=== PATIENT | female | born 1975 | race Hispanic/Latino ===

== ENCOUNTER 2020-07-27 10:10 | Inpatient (IN) | payer OTHER ==
[2020-07-22 09:45] LABS: BASOPHILS % 0.4 % (0.0-1.0); EOSINOPHILS % 0.5 % (0.0-6.0); HEMATOCRIT 42.2 % (34.2-44.1); HEMOGLOBIN 14.3 g/dL (12.0-16.0); LYMPHOCYTES # (AUTO) 2.3 (1.0-3.2); LYMPHOCYTES % 28.1 % (18.0-39.1); MEAN CORPUSCULAR HEMOGLOBIN 31.2 pg (28-32); MEAN CORPUSCULAR HGB CONC 33.9 g/dL (31-35); MEAN CORPUSCULAR VOLUME 91.9 fL (81-99); MONOCYTES # (AUTO) 0.5 (0.2-0.8); MONOCYTES % 6.3 % (4.4-11.3); NEUTROPHILS # (AUTO) 5.3 (2.1-6.9); NEUTROPHILS % 64.3 % (38.7-80.0); PLATELET COUNT 426 x10e3/uL (140-360); RED BLOOD COUNT 4.59 x10e6/uL (3.6-5.1); RED CELL DISTRIBUTION WIDTH 14.3 % (11.7-14.4)
[2020-07-22 10:14] LABS: ALANINE AMINOTRANSFERASE 20 IU/L (0-55); ALBUMIN 3.2 g/dL (3.5-5.0); ALBUMIN/GLOBULIN RATIO 0.8 (0.8-2.0); ALKALINE PHOSPHATASE 56 IU/L (40-150); BLOOD UREA NITROGEN 15 mg/dL (7-26); BUN/CREATININE RATIO 22 (6-25); CALCIUM 8.3 mg/dL (8.4-10.2); CARBON DIOXIDE 27 mmol/L (22-29); CHLORIDE 102 mmol/L (98-107); CREATININE, SERUM 0.69 mg/dL (0.57-1.11); EST GLOMERULAR FILTRATION RATE > 60 ML/MIN (60-); GLUCOSE 76 mg/dL (74-118); SODIUM 139 mmol/L (136-145)
[~2020-07-27 10:10] MED LIST: ATENOLOL50 MG PO; GABAPENTIN400 MG PO; HYDROXYZINE HCL25 MG PO; LOSARTAN POTAS100 MG PO; NP THYROID30 MG PO; PERCOCET 10-321 EACH PO
[2020-07-27] MEDS ORDERED: CEFAZOLIN SOD 1 GM/NS 50ML 100 ML IV ONE (10:57)
[2020-07-27] MEDS ORDERED: IOPAMIDOL 300MG/ML 50ML INFUS..BTL IV ONE (11:55)
[2020-07-27] MEDS ORDERED: B&O 60MG R/S 60 MG SUPP PR ONE (11:55)
[2020-07-27] MEDS ORDERED: BUPIVACAINE 0.25%/EPI 30ML SDV INJ ONE (11:55)
[2020-07-27] MEDS ORDERED: DEXAMETHASONE SOD PHOS INJ 4 MG/ML VIAL ONE (13:16)
[2020-07-27] MEDS ORDERED: SEVOFLURANE INHAL SOLN 250 ML PEN BTL ONE (13:16)
[2020-07-27] MEDS ORDERED: ONDANSETRON HCL INJ 2MG/ML 2ML 2 MG/ML VIAL ONE (13:16)
[2020-07-27] MEDS ORDERED: METOCLOPRAMIDE HCL 10 MG/2ML VIAL ONE (13:16)
[2020-07-27] MEDS ORDERED: PROPOFOL IV EMULSION 10 MG/ML 20 ML VIAL ONE (13:16)
[2020-07-27] MEDS ORDERED: SUCCINYLCHOLINE CHLORIDE 20 MG/ML 10ML VIAL ONE (13:16)
[2020-07-27] MEDS ORDERED: NEOSTIGMINE 1 MG/ML 10ML VIAL ONE (13:16)
[2020-07-27] MEDS ORDERED: LIDOCAINE HCL 2% LOCAL INJ 5 ML SDV VIAL INJ ONE (13:16)
[2020-07-27] MEDS ORDERED: GLYCOPYRROLATE INJ 0.2 MG/ML VIAL ONE (13:16)
[2020-07-27] MEDS ORDERED: ROCURONIUM BROMIDE 10 MG/ML 5ML VIAL IV ONE (13:16)
[2020-07-27] MEDS ORDERED: MIDAZOLAM HCL 2 MG/2 ML VIAL ONE (13:32)
[2020-07-27] MEDS ORDERED: FENTANYL CITRATE/PF 100MCG/2 ML INJ ONE (13:32)
[2020-07-27] MEDS ORDERED: MORPHINE SULFATE INJ 10 MG/ML ONE (13:32)
[2020-07-27] MEDS ORDERED: HYDROMORPHONE 1MG/1ML INJ ONE ×2 (15:10→19:54)
[2020-07-27] MEDS ORDERED: INDIGOTINDISULFONATE SODIUM 8 MG/ML AMP IJ ONE ×2 (15:10→18:03)
[2020-07-27] MEDS ORDERED: DIPHENHYDRAMINE HCL INJ 50 MG/ML VIAL IM PRN (19:30)
[2020-07-27] MEDS ORDERED: SIMETHICONE 80 MG CHEW PO PRN (19:30)
[2020-07-27] MEDS ORDERED: ONDANSETRON HCL INJ 2MG/ML 2ML 2 MG/ML VIAL IV PRN (19:30)
[2020-07-27] MEDS ORDERED: DIPHENHYDRAMINE HCL 25 MG CAP PO PRN (19:30)
[2020-07-27] MEDS ORDERED: ACETAMINOPHEN 1000 MG/100 ML IV PRN (19:30)
[2020-07-27] MEDS ORDERED: NALOXONE HCL INJ 0.4 MG/ML AMP IV PRN (19:30)
[2020-07-27] MEDS ORDERED: BISACODYL 10 MG SUPP PR PRN (19:30)
[2020-07-27] MEDS ORDERED: HYDROMORPHONE 0.2MG/ML-SOD CHL 30ML PCA SYRINGE IV ONE (19:55)
[2020-07-27 20:08] VITALS: BP 136/85
[2020-07-27] MEDS ORDERED: MEPERIDINE HCL INJ 25 MG/ML VIAL ONE (20:09)
[2020-07-27] MEDS: GABAPENTIN 300 MG CAP PO SCH (21:41)
[2020-07-27] MEDS: DOCUSATE SODIUM 100 MG CAP PO SCH (21:41)
[2020-07-27] MEDS: LACTATED RINGER'S 1,000 ML IV SCH (21:41)
[2020-07-27] MEDS: CEFAZOLIN SOD 1 GM/NS 50ML 50 ML IV SCH (21:42)
[2020-07-27] MEDS: KETOROLAC TROMETHAMINE 30 MG/ML VIAL IV SCH (23:50)
[2020-07-28] VITALS (8 sets, daily range): BP systolic 111–140; BP diastolic 69–99
[2020-07-28] MEDS: LACTATED RINGER'S 1,000 ML IV SCH ×3 (03:30→19:30)
[2020-07-28] MEDS: CEFAZOLIN SOD 1 GM/NS 50ML 50 ML IV SCH ×2 (05:27→13:00)
[2020-07-28] MEDS: KETOROLAC TROMETHAMINE 30 MG/ML VIAL IV SCH ×3 (05:28→17:45)
[2020-07-28] MEDS: THYROID 60 MG TAB PO SCH (05:28)
[2020-07-28 05:48] LABS: BASOPHILS % 0.2 % (0.0-1.0); HEMATOCRIT 32.5 % (34.2-44.1); LYMPHOCYTES # (AUTO) 1.2 (1.0-3.2); LYMPHOCYTES % 7.8 % (18.0-39.1); MEAN CORPUSCULAR HEMOGLOBIN 31.6 pg (28-32); MEAN CORPUSCULAR HGB CONC 33.8 g/dL (31-35); MEAN CORPUSCULAR VOLUME 93.4 fL (81-99); MONOCYTES # (AUTO) 1.1 (0.2-0.8); NEUTROPHILS # (AUTO) 12.7 (2.1-6.9); NEUTROPHILS % 84.5 % (38.7-80.0); PLATELET COUNT 493 x10e3/uL (140-360); RED BLOOD COUNT 3.48 x10e6/uL (3.6-5.1); RED CELL DISTRIBUTION WIDTH 13.9 % (11.7-14.4)
[2020-07-28 06:37] LABS: ANION GAP 13.5 mmol/L (8-16); BLOOD UREA NITROGEN 13 mg/dL (7-26); BUN/CREATININE RATIO 19 (6-25); CALCIUM 7.5 mg/dL (8.4-10.2); CARBON DIOXIDE 22 mmol/L (22-29); CHLORIDE 103 mmol/L (98-107); CREATININE, SERUM 0.67 mg/dL (0.57-1.11); EST GLOMERULAR FILTRATION RATE > 60 ML/MIN (60-); GLUCOSE 114 mg/dL (74-118); POTASSIUM 4.5 mmol/L (3.5-5.1); SODIUM 134 mmol/L (136-145)
[2020-07-28] MEDS: ENOXAPARIN 30 MG/0.3 ML SYR SC SCH ×2 (09:00→17:44)
[2020-07-28] MEDS: DOCUSATE SODIUM 100 MG CAP PO SCH ×2 (09:01→17:55)
[2020-07-28] MEDS: GABAPENTIN 300 MG CAP PO SCH ×3 (09:02→20:22)
[2020-07-28] MEDS: ATENOLOL 50 MG TAB PO SCH (09:02)
[2020-07-28] MEDS: LOSARTAN POTASSIUM 100 MG TAB PO SCH (09:02)
[2020-07-28] MEDS: HYDROMORPHONE 0.2MG/ML-SOD CHL 30ML PCA SYRINGE IV PRN ×3 (11:55→23:14)
[2020-07-28] MEDS: CELECOXIB 200 MG CAP PO SCH (18:39)
[2020-07-28] MEDS ORDERED: HYDROMORPHONE 0.2MG/ML-SOD CHL 30ML PCA SYRINGE IV ONE (23:02)
[2020-07-29] MEDS: LACTATED RINGER'S 1,000 ML IV SCH (03:30)
[2020-07-29 04:00] VITALS: BP_SYST 102; BP_SYST 112; BP_DIAS 67; BP_DIAS 79
[2020-07-29 05:19] LABS: BASOPHILS % 0.4 % (0.0-1.0); EOSINOPHILS % 0.5 % (0.0-6.0); HEMATOCRIT 25.4 % (34.2-44.1); HEMOGLOBIN 8.3 g/dL (12.0-16.0); LYMPHOCYTES # (AUTO) 3.1 (1.0-3.2); LYMPHOCYTES % 38.9 % (18.0-39.1); MEAN CORPUSCULAR HEMOGLOBIN 31.1 pg (28-32); MEAN CORPUSCULAR HGB CONC 32.7 g/dL (31-35); MEAN CORPUSCULAR VOLUME 95.1 fL (81-99); MONOCYTES # (AUTO) 0.7 (0.2-0.8); MONOCYTES % 8.5 % (4.4-11.3); NEUTROPHILS # (AUTO) 4.2 (2.1-6.9); NEUTROPHILS % 51.3 % (38.7-80.0); PLATELET COUNT 327 x10e3/uL (140-360); RED BLOOD COUNT 2.67 x10e6/uL (3.6-5.1); RED CELL DISTRIBUTION WIDTH 14.3 % (11.7-14.4)
[2020-07-29] MEDS: THYROID 60 MG TAB PO SCH (05:53)
[2020-07-29] MEDS ORDERED: HYDROCODONE/APAP 10MG-325MG TAB PO PRN (06:00)
[2020-07-29 06:34] LABS: ANION GAP 9.9 mmol/L (8-16); BLOOD UREA NITROGEN 10 mg/dL (7-26); BUN/CREATININE RATIO 17 (6-25); CALCIUM 7.4 mg/dL (8.4-10.2); CARBON DIOXIDE 27 mmol/L (22-29); CHLORIDE 105 mmol/L (98-107); CREATININE, SERUM 0.59 mg/dL (0.57-1.11); EST GLOMERULAR FILTRATION RATE > 60 ML/MIN (60-); GLUCOSE 92 mg/dL (74-118); POTASSIUM 3.9 mmol/L (3.5-5.1); SODIUM 138 mmol/L (136-145)
[2020-07-29] MEDS ORDERED: CELECOXIB 200 MG CAP PO SCH (08:00)
[2020-07-29 08:11] VITALS: BP 118/73
[2020-07-29] MEDS: CELECOXIB 200 MG CAP PO SCH ×2 (09:00→16:00)
[2020-07-29 09:01] VITALS: BP 118/73
[2020-07-29] MEDS: DOCUSATE SODIUM 100 MG CAP PO SCH ×2 (09:17→16:00)
[2020-07-29] MEDS: LOSARTAN POTASSIUM 100 MG TAB PO SCH (09:18)
[2020-07-29] MEDS: GABAPENTIN 300 MG CAP PO SCH ×2 (09:18→16:00)
[2020-07-29] MEDS: ATENOLOL 50 MG TAB PO SCH (09:18)
[2020-07-29] MEDS: ENOXAPARIN 30 MG/0.3 ML SYR SC SCH ×2 (09:23→16:00)
[2020-07-29 11:39] VITALS: BP 106/76
[2020-07-29] MEDS: OXYCODONE/ACETAMINOPHEN 5-325 1 EACH TABLET PO PRN ×2 (13:44→17:30)
[2020-07-29 16:04] VITALS: BP 102/65
[2020-07-29] MEDS ORDERED: Oxycodone/Acetaminophen 5-325 PO (18:11)
[2020-07-29] MEDS ORDERED: Celecoxib PO (18:11)
[2020-07-29] MEDS ORDERED: GABAPENTIN300 MG PO (18:11)
[2020-07-29] MEDS ORDERED: COLACE100 MG PO (18:11)
== END 2020-07-29 19:10 | disposition home or self-care (01) | DRG 655 ==
LOC: OR 10:10 → MED/SURG 20:45
PROVIDERS: ADMIT Obstetrics & Gynecology Obstetrics; ATTEND Obstetrics & Gynecology Obstetrics
PROC: 0T788DZ Dilation of Bilateral Ureters with Intraluminal Device, Via Natural or Artificial Opening Endoscopic (ICD-10-PCS; 2020-07-27)
PROC: 0DNU4ZZ Release Omentum, Percutaneous Endoscopic Approach (ICD-10-PCS; 2020-07-27)
PROC: 0DNN4ZZ Release Sigmoid Colon, Percutaneous Endoscopic Approach (ICD-10-PCS; 2020-07-27)
PROC: 0UN04ZZ Release Right Ovary, Percutaneous Endoscopic Approach (ICD-10-PCS; 2020-07-27)
PROC: 0T788DZ Dilation of Bilateral Ureters with Intraluminal Device, Via Natural or Artificial Opening Endoscopic (ICD-10-PCS; 2020-07-27)
PROC: 0JN83ZZ Release Abdomen Subcutaneous Tissue and Fascia, Percutaneous Approach (ICD-10-PCS; 2020-07-27)
PROC: 0UT64ZZ Resection of Left Fallopian Tube, Percutaneous Endoscopic Approach (ICD-10-PCS; 2020-07-27)
PROC: 0UT14ZZ Resection of Left Ovary, Percutaneous Endoscopic Approach (ICD-10-PCS; 2020-07-27)
PROC: 0TJB8ZZ Inspection of Bladder, Via Natural or Artificial Opening Endoscopic (ICD-10-PCS; 2020-07-27)
PROC: BT141ZZ Fluoroscopy of Kidneys, Ureters and Bladder using Low Osmolar Contrast (ICD-10-PCS; 2020-07-27)
PROC: 0T9880Z Drainage of Bilateral Ureters with Drainage Device, Via Natural or Artificial Opening Endoscopic (ICD-10-PCS; principal; 2020-07-27 12:00)
PROC: 0TQB0ZZ Repair Bladder, Open Approach (ICD-10-PCS; 2020-07-27 12:00)
DX: N39.0 Urinary tract infection, site not specified (principal); E66.9 Obesity, unspecified; K66.0 Peritoneal adhesions (postprocedural) (postinfection); N83.201 Unspecified ovarian cyst, right side; N99.4 Postprocedural pelvic peritoneal adhesions; N13.5 Crossing vessel and stricture of ureter without hydronephrosis; N81.10 Cystocele, unspecified; N36.41 Hypermobility of urethra; N32.89 Other specified disorders of bladder; G89.29 Other chronic pain; Z20.822 Contact with and (suspected) exposure to COVID-19
CPT/HCPCS: 36415; 74420; 80048; 80053; 85025; 88304; 88305; 93005; 97139; C1766; C2617; J0330; J0690; J1100; J1170; J1650; J1885; J2001; J2175; J2250; J2270; J2405; J2710; J2765; J3010; J7121; U0002

== ENCOUNTER → 2020-08-12 | Outpatient (CLI) | payer OTHER ==
[~2020-08-12] MED LIST changes: +COLACE100 MG PO; +Celecoxib PO; +GABAPENTIN300 MG PO; +Oxycodone/Acetaminophen 5-325 PO; +SODIUM CHLORIDE 0.9% 500ML 500 ML ONE
== END ==
LOC: CT 09:10
PROVIDERS: ATTEND Urology
DX: N13.5 Crossing vessel and stricture of ureter without hydronephrosis (principal)
CPT/HCPCS: 72194; J7040